=== PATIENT | male | born 1985 | race Caucasian/White ===

== ENCOUNTER 2019-04-18 14:20 | Observation (INO) | payer OTHER ==
[~2019-04-18 14:20] MED LIST: Ketorolac Tromethamine 30 MG/ML VIAL ONE; Lidocaine 1% PF 5 ML VIAL ONE; Ondansetron PF 4 MG/2 ML Vial ONE; PROPOFOL 200 MG/20 ML VIAL ONE
[2019-04-18] MEDS ORDERED: Sodium Chloride 0.9% 10 ML ONE ×2 (16:19→16:48)
[2019-04-18] MEDS ORDERED: Sodium Chloride 0.9% 20 ML ONE (16:36)
[2019-04-18] MEDS ORDERED: Bupivacaine PF 0.5% 30 ML VIAL ONE (16:48)
[2019-04-18] MEDS ORDERED: Bacitracin Zinc Ointment 30 gm TUBE ONE (16:48)
[2019-04-18] MEDS ORDERED: Midazolam HCl 2 mg/2 ml Vial ONE (16:52)
[2019-04-18] MEDS ORDERED: HYDROmorphone 0.5 MG/0.5 ML SYRINGE ONE (16:52)
[2019-04-18] MEDS ORDERED: Gentamicin 80 MG/2 ML VIAL ONE (16:53)
[2019-04-18] MEDS ORDERED: Sodium Chloride 0.9% 0 ML ONE (16:53)
--- NOTE | 2019-04-18 17:04 | RAD ---
EXAM: 3 views of the right hand COMPARISON: None HISTORY: Hand pain FINDINGS: 3 views of the hand shows no evidence of acute fracture or dislocation. No degenerative yariel nges are seen. Ring and small finger soft tissue swelling is present. IMPRESSION: Soft tissue swelling of the ring and small fingers without obvious osseous abnormality. E xamination is limited as the patient's fingers are held in flexion.
[2019-04-18] MEDS ORDERED: Sodium Chloride 0.9% 30 ML ONE (17:50)
[2019-04-18] MEDS ORDERED: HYDROmorphone 2 MG/ML VIAL SLOW IVP PRN (18:19)
[2019-04-18] MEDS ORDERED: Promethazine HCl 25 MG/ML VIAL SLOW IVP PRN (18:19)
[2019-04-18] MEDS ORDERED: PACU-Morphine 4MG/ML VIAL SLOW IVP PRN (18:19)
[2019-04-18] MEDS ORDERED: Promethazine HCl 25 MG/ML VIAL IM PRN (18:19)
[2019-04-18] MEDS ORDERED: Ondansetron HCl/PF 4 MG/2 ML Vial IVP PRN (18:19)
[2019-04-18] MEDS ORDERED: Morphine 4 MG/ML VIAL SLOW IVP PRN (19:24)
[2019-04-18] MEDS ORDERED: Fentanyl 100 MCG/2 ML VIAL SLOW IVP PRN (19:24)
[2019-04-18] MEDS ORDERED: Acetaminophen 325 MG TAB PO PRN (19:24)
[2019-04-18] MEDS ORDERED: traMADol HCl 50 MG TAB PO PRN (19:24)
[2019-04-18] MEDS ORDERED: Meperidine HCl/PF 25 MG/ML VIAL IM PRN (19:27)
[2019-04-18] MEDS ORDERED: Communication Order-Pharmacy FS SCH (19:30)
[2019-04-18] MEDS ORDERED: TETANUS AND DIPHTHERIA TOX/PF 0.5 ML DISP.SYRIN IM SCH (21:00)
[2019-04-18 22:03] VITALS: BMI 32.3
[2019-04-18] MEDS: Sodium Chloride 0.9% 1,000 ML IV SCH (22:29)
[2019-04-18] MEDS: Aspirin 81 mg Enteric Coated Tablet PO SCH (22:31)
[2019-04-19] MEDS: Ketorolac Tromethamine 30 MG/ML VIAL IVP SCH ×3 (00:03→11:44)
[2019-04-19] MEDS: Vancomycin 1 GM in Premix Bag 1 BAG IVPB SCH ×2 (00:03→08:03)
[2019-04-19] MEDS: HYDROcodone/Acetaminophen 5/325 mg Tablet PO PRN ×4 (00:07→13:28)
[2019-04-19] MEDS: Sodium Chloride 0.9% 1,000 ML IV SCH (05:38)
[2019-04-19] MEDS ORDERED: metFORMIN 500 MG TAB PO SCH (08:00)
[2019-04-19] MEDS: Aspirin 81 mg Enteric Coated Tablet PO SCH (08:03)
--- NOTE | 2019-04-19 10:35 | OP ---
DATE OF PROCEDURE: 04/18/2019 PREOPERATIVE DIAGNOSIS: Right ring finger, middle finger, small finger, index finger open wound secondary to at work injury. HISTORY: The patient caught his hand on a large culvert while it was rolling, grabbed it with palmar lacerations near the distal interphalangeal joint of all three digits. POSTOPERATIVE DIAGNOSES: 1. Right small finger 3 cm wound without neurovascular compromise. 2. Right index finger 3 cm wound without neurovascular compromise. 3. Right middle finger 5 cm wound with digital nerve exposed, but no nerve laceration. 4. Right ring finger 5 cm wound with digital nerve exposed with neurovascular injuries. PROCEDURES PERFORMED: 1. Right small finger. a. Wound debridement depth intermediate, 80849. b. Closure of wound, 3 cm, 46655. 2. Right index finger. a. Wound debridement, 71860. b. Wound closure 3 cm, 85740. 3. Right middle finger. a. Wound debridement, 78022, depth. b. Digital nerve neuroplasty under magnification. c. Closure of wound, 5 cm, 84113. 4. Right ring finger. a. Wound debridement, intermediate depth 52073. b. Digital nerve neuroplasty. c. Closure of wound, 5 cm. SPECIMEN REMOVED: None. TOURNIQUET TIME: 12 minutes at 250 mmHg pressure. ESTIMATED BLOOD LOSS: 10 mL. INJECTABLE: Yes, 20 mL of 0.5% Marcaine given proximal to the A1 anthony region and all four digits divided equally prior to incision. DESCRIPTION OF PROCEDURE: After successful general endotracheal anesthesia, keeping in mind that patient had intact FDP, FDS and two-point discrimination in the radial and ulnar aspect of all digits, we elevated all flaps, after exsanguination of the limb, and prepped and draped. The time-out done appropriately. This was done at the small finger and the index finger by only a 5 mm extension and then at the middle and ring finger by a 1.5 cm extension proximally. We first then after we lifted the flaps on the index and the small finger, noticed a mild amount of contamination, but there was an area of 3 mm rim of complete epidermal loss on each finger that had the most contamination. We debrided this using classic technique with tenotomy scissors, Adson's, curette, and Pulsavac in an excisional fashion. Depth was down to the flexor tendon sheath with the neurovascular bundle, but not including bone. There was no radiographic evidence or clinical evidence of fracture in any of the digits with the x-rays done here at this hospital prior to surgery. The patient then had the debridement completed with excision technique and found to have only minimal contamination here. Because there was a transverse laceration and a jagged oblique laceration of both the middle finger and the ring finger, we extended these wounds 1.5 cm proximal, 5 mm distal to expose the neurovascular bundle, which was intact clinically under magnification at both sites and thus the ring finger and the middle finger underwent digital nerve neuroplasties under loupe magnification x2 as well as the standard debridement techniques described above. Once we had finished irrigating with the 3 L Pulsavac, divided equally amongst each digit wound, we then used another 1000 on the back table with irrigation x2, deflated tourniquet, obtained hemostasis, and then began closure. All wounds were closed primarily with either 4-0 or 5-0 nylon, and there was no evidence of anesthetic or operative complication. Splint was applied as classic dorsal block, and the patient left the operating room with pink digits. No evidence of anesthetic or operative complication. Job ID: [id number]
[2019-04-19 11:35] VITALS: BP 125/88; TEMP 97.8
--- NOTE | 2019-04-20 15:11 | DIS ---
DATE OF ADMISSION: 04/18/2019 DATE OF DISCHARGE: 04/19/2019 ADMISSION DIAGNOSES: 1. Right small finger 3 cm wound. 2. Right index finger 3 cm wound. 3. Right middle finger 5 cm wound. 4. Right ring finger 5 cm wound. DISCHARGE DIAGNOSES: 1. Right small finger 3 cm wound without evidence of neurovascular compromise. 2. Right index finger 3 cm wound without evidence of neurovascular compromise. 3. Right middle finger 5 cm wound with evidence of digital nerve exposure, but no nerve laceration. 4. Right ring finger 5 cm wound with evidence of digital nerve exposure, but no nerve laceration. HOSPITAL COURSE: The patient was admitted because of the open wounds with possible contamination. He went to the operating room that night, found to have minimum contaminates, wounds were debrided, this included exploration of all wounds, his small finger and index finger wound were not deep, so he underwent wound debridement and closure while the middle finger and ring finger were deep and required digital nerve neuroplasty, but they were not lacerated. All wounds were closed. He remained in the hospital with a bulky dressing, Reagan type splint to protect the bundle, and was given IV antibiotics for 24 hours before being discharged. He has no fever or chills. PLAN: The patient will not work for one week. Wear the dress for 1 week. Given oral Bactrim DS prophylaxis and [place] for pain. Diet is regular. Follow up with us again in 5 to 7 days. Job ID: [id number]
--- NOTE | 2019-05-02 06:10 | PQF ---
[facility] POST DISCHARGE CLINICAL DOCUMENTATION IMPROVEMENT CLARIFICATION FORM l Todays Date: 04/29/19 l Patients Name MALATHI DURAND l l Admit Date 04/18/19 l Disch Date 04/19/19 Teletype Adjuster Name Italo Eason Email: [email or web address] Cell: [phone] To be completed by Teletype Adjuster: Present Clinical Indicators - Signs / Symptoms Results and Location in Medical Record [ ] Documentation of: [ ] [ ] Documentation of: [ ] [ ] Documentation of: [ ] [ ] Documentation of: [ ] [ ] Risks [ ] [ ] [ ] Treatment [ ] Laceration of R index finger Laceration of R middle finger Laceration of R ring finger Laceration of R small finger Query for the following: Area (sq cm) of debridement R index finger Area (sq cm) and depth of debridement R middle finger Area (sq cm) and depth of debridement R ring finger Area (sq cm) of debridement R small finger [ ] [ ] To be completed by Physician: MACI ESPINO The documentation in this patients record requires clarification to ensure coding compliance and accuracy. Check the appropriate box and include in your discharge summary. [ ] [ ] [ ] [ ] Please check this box if this does not apply to this patient [ ] Unable to determine [ ] Other diagnosis: Review the following information and exercise your independent professional judgment in responding to the clarification. Based upon the clinical findings, risk factors, and treatment, please clarify if you are treating one of the above probable or suspected diagnoses. Physician Signature: Date Time MTDD
== END 2019-04-19 13:30 | disposition home or self-care (01) ==
LOC: ERS 14:20 → SDC 14:21 → SURG A 19:27 → UNDOADMOB 19:27
PROVIDERS: ADMIT Orthopaedic Surgery Hand Surgery; ATTEND Orthopaedic Surgery Hand Surgery
PROC: 01Q60ZZ Repair Radial Nerve, Open Approach (ICD-10-PCS; principal; 2019-04-18)
PROC: 01Q40ZZ Repair Ulnar Nerve, Open Approach (ICD-10-PCS; 2019-04-18)
PROC: 01Q60ZZ Repair Radial Nerve, Open Approach (ICD-10-PCS; 2019-04-18)
PROC: 01Q40ZZ Repair Ulnar Nerve, Open Approach (ICD-10-PCS; 2019-04-18)
PROC: 0JQJ0ZZ Repair Right Hand Subcutaneous Tissue and Fascia, Open Approach (ICD-10-PCS; 2019-04-18)
DX: S61.210A Laceration without foreign body of right index finger without damage to nail, initial encounter (principal); S61.212A Laceration without foreign body of right middle finger without damage to nail, initial encounter; S61.214A Laceration without foreign body of right ring finger without damage to nail, initial encounter; S61.216A Laceration without foreign body of right little finger without damage to nail, initial encounter; E11.9 Type 2 diabetes mellitus without complications; I10 Essential (primary) hypertension; Z79.84 Long term (current) use of oral hypoglycemic drugs; Z79.899 Other long term (current) drug therapy; W23.0XXA Caught, crushed, jammed, or pinched between moving objects, initial encounter; Y99.0 Civilian activity done for income or pay
CPT/HCPCS: 96365; 96366; 96375; 96376; G0378; J0690; J1170; J1580; J1885; J2001; J2250; J2405; J2704; J3370; J3490; S0020

== ENCOUNTER 2021-08-15 11:06 | Inpatient (IN) | payer OTHER ==
[2021-08-15] MEDS ORDERED: CEFAZOLIN 2 GM VIAL ONE ×2 (11:17→16:33)
[2021-08-15] MEDS ORDERED: Boostrix 0.5 ML (Tdap) VIAL ONE (11:17)
[2021-08-15] MEDS ORDERED: Fentanyl 100 MCG/2 ML VIAL ONE ×4 (11:18→14:56)
[2021-08-15] MEDS ORDERED: Ketamine 50 MG/ML (10ML VIAL) ONE ×2 (11:19→16:35)
[2021-08-15] MEDS ORDERED: Iopamidol-370 76% 500 ML 1 ML ONE (11:35)
[2021-08-15 12:38] LABS: #Eosinphils 0.1 thou/uL (0.0-0.7); #Monocytes 0.5 thou/uL (0.11-0.59); #Neutrophils 8.8 thou/uL (1.40-6.50); %Basophils 0.1 % (0.0-1.0); %Eosinophils 1.1 % (0.0-10.0); %Monocytes 4.2 % (0.0-10.0); %Neutrophils 70.6 % (42.0-75.0); Hemoglobin 14.6 g/dL (14.0-18.0); Mean Corpuscular HGB CONC 33.8 g/dL (32.0-36.0); Mean Corpuscular Hemoglobin 31.6 pg (27.0-31.0); Mean Corpuscular Volume 93.6 fL (78.0-98.0); Mean Platelet Volume 8.9 fL (7.4-10.4); Platelet Count 246 thou/uL (130-400); RBC Distribution Width 11.1 % (11.5-14.5); Red Blood Cell (RBC) Count 4.61 mill/uL (4.70-6.10); White Blood Cell (WBC) Count 12.4 thou/uL (4.8-10.8)
[2021-08-15 12:49] LABS: PTT 24.5 sec (22.9-36.1); Prothrombin Time 13.3 sec (12.0-14.7)
[2021-08-15 13:02] LABS: ALT (SGPT) 591 U/L (8-55); AST (SGOT) 1139 U/L (5-34); Albumin 4.3 g/dL (3.5-5.0); Alkaline Phosphatase 44 U/L (40-110); Anion Gap 20 mmol/L (10-20); BUN (Urea Nitrogen) 16 mg/dL (8.9-20.6); Bilirubin, Total 0.8 mg/dL (0.2-1.2); Calc. Creatinine Clearance 0 mL/min (70-130); Calcium 9.4 mg/dL (7.8-10.44); Carbon Dioxide 20 mmol/L (22-29); Chloride 100 mmol/L (98-107); Globulin 2.8 g/dL (2.4-3.5); Glucose 276 mg/dL (70-105); Lipase 72 U/L (8-78); Potassium 4.5 mmol/L (3.5-5.1); Protein, Total 7.1 g/dL (6.0-8.3); Sodium 135 mmol/L (136-145)
[2021-08-15] MEDS ORDERED: Dextrose 50% Abboject 50 ML SYRINGE SLOW IVP PRN (13:04)
[2021-08-15] MEDS ORDERED: Dextrose 5% in Water 1,000 ML IV PRN (13:04)
[2021-08-15] MEDS ORDERED: Ondansetron PF 4 MG/2 ML Vial IVP PRN ×2 (13:04→13:39)
[2021-08-15] MEDS ORDERED: hydrALAZINE 20 MG/ML VIAL SLOW IVP PRN (13:04)
[2021-08-15] MEDS ORDERED: Promethazine HCl 25 MG/ML VIAL IM PRN ×2 (13:04→13:39)
[2021-08-15] MEDS ORDERED: Morphine 2 MG/ML VIAL SLOW IVP PRN (13:04)
[2021-08-15] MEDS ORDERED: HYDROmorphone 0.5 MG/0.5 ML SYRINGE ONE ×2 (13:08→16:17)
[2021-08-15] MEDS ORDERED: Sodium Chloride 0.9% 1,000 ML IV SCH ×2 (13:15→19:15)
[2021-08-15] MEDS ORDERED: Ketorolac Tromethamine 30 MG/ML VIAL ONE (13:34)
[2021-08-15] MEDS ORDERED: diphenhydrAMINE 50 MG/ML VIAL IVP PRN (13:39)
[2021-08-15] MEDS ORDERED: Naloxone HCl 0.4 mg/ml Vial IV PRN (13:39)
[2021-08-15] MEDS ORDERED: diphenhydrAMINE 50 MG/ML VIAL IM PRN (13:39)
[2021-08-15] MEDS ORDERED: HYDROmorphone 10 mg/100 ml CADD IVPB PRN (13:39)
[2021-08-15] MEDS ORDERED: Zolpidem Tartrate 5 MG TAB PO PRN (13:39)
[2021-08-15] MEDS ORDERED: diphenhydrAMINE 25 MG CAP PO PRN (13:39)
[2021-08-15] MEDS ORDERED: PCA Communication Order-Pharmacy FS SCH (13:45)
[2021-08-15] MEDS ORDERED: ceFAZolin 2 GM/Dextrose 50 ML 2 GM in Premix Bag 1 BAG IVPB SCH (15:00)
[2021-08-15 15:27] LABS: SARS-CoV-2 NAA Rapid Test Not Detected (NotDetected)
[2021-08-15 16:12] LABS: Lactic Acid 4.3 mmol/L (0.5-2.2)
[2021-08-15] MEDS ORDERED: Midazolam HCl 2 mg/2 ml Vial ONE (16:17)
[2021-08-15] MEDS ORDERED: fentaNYL Citrate/PF 100 MCG/2 ML SYRINGE ONE (16:17)
[2021-08-15] MEDS ORDERED: Famotidine/PF 20 mg/2ml Vial ONE (16:18)
[2021-08-15] MEDS ORDERED: Sodium Chloride 0.9% 100 ML ONE (16:33)
[2021-08-15] MEDS ORDERED: Dexamethasone 20 MG/5 ML VIAL ONE (16:51)
[2021-08-15] MEDS ORDERED: Ondansetron PF 4 MG/2 ML Vial ONE (16:51)
[2021-08-15] MEDS ORDERED: PROPOFOL 200 MG/20 ML VIAL ONE (16:51)
[2021-08-15] MEDS ORDERED: PHENYLEPHRINE-NS 100 MCG/ML 10 ML SYRINGE ONE ×2 (16:51→17:30)
[2021-08-15] MEDS ORDERED: Lidocaine 1% PF 5 ML VIAL ONE (16:51)
[2021-08-15] MEDS ORDERED: Acetaminophen 500 MG TAB PO SCH (18:00)
[2021-08-15] MEDS ORDERED: traMADol HCl 50 MG TAB PO SCH (18:00)
[2021-08-15] MEDS ORDERED: Albumin 5% 500 ML ONE (18:25)
[2021-08-15] MEDS ORDERED: Acetaminophen 325 MG TAB PO SCH (19:15)
[2021-08-15 19:42] LABS: #Lymphocytes 0.5 thou/uL (1.20-3.40); #Monocytes 0.6 thou/uL (0.11-0.59); #Neutrophils 8.9 thou/uL (1.40-6.50); %Basophils 0.2 % (0.0-1.0); %Eosinophils 0.3 % (0.0-10.0); %Lymphocytes 5.4 % (21.0-51.0); %Monocytes 5.5 % (0.0-10.0); %Neutrophils 88.6 % (42.0-75.0); Hemoglobin 12.1 g/dL (14.0-18.0); Mean Corpuscular HGB CONC 34.3 g/dL (32.0-36.0); Mean Corpuscular Hemoglobin 31.9 pg (27.0-31.0); Mean Platelet Volume 8.4 fL (7.4-10.4); Platelet Count 194 thou/uL (130-400); RBC Distribution Width 10.8 % (11.5-14.5); Red Blood Cell (RBC) Count 3.78 mill/uL (4.70-6.10); White Blood Cell (WBC) Count 10.1 thou/uL (4.8-10.8)
[2021-08-15] MEDS ORDERED: Lidocaine 1% (PF) 30 ML VIAL ONE (20:44)
[2021-08-15] MEDS: Gabapentin 300 MG CAP PO SCH ×2 (22:06→23:12)
[2021-08-15] MEDS: Senokot S 8.6-50 MG TAB PO SCH (22:08)
[2021-08-15] MEDS: CEFAZOLIN 2 GM in Sodium Chloride 0.9% 100 ML IVPB SCH (22:08)
[2021-08-15] MEDS: Famotidine/PF 20 mg/2ml Vial SLOW IVP SCH (22:09)
[2021-08-15] MEDS ORDERED: Insulin Glargine 30 UNITS/0.3 ML VIAL SC SCH (22:32)
[2021-08-15] MEDS: Sodium Chloride 0.9% 1,000 ML IV SCH (23:05)
[2021-08-15] MEDS: Acetaminophen 325 MG TAB PO SCH (23:09)
[2021-08-16 00:23] VITALS: BMI 33.7
[2021-08-16 01:33] LABS: #Lymphocytes 0.5 thou/uL (1.20-3.40); #Monocytes 0.4 thou/uL (0.11-0.59); #Neutrophils 5.7 thou/uL (1.40-6.50); %Eosinophils 0.4 % (0.0-10.0); %Lymphocytes 6.9 % (21.0-51.0); %Monocytes 6.5 % (0.0-10.0); %Neutrophils 86.3 % (42.0-75.0); Hemoglobin 10.9 g/dL (14.0-18.0); Mean Corpuscular HGB CONC 35.1 g/dL (32.0-36.0); Mean Corpuscular Hemoglobin 32.8 pg (27.0-31.0); Mean Corpuscular Volume 93.4 fL (78.0-98.0); Platelet Count 151 thou/uL (130-400); RBC Distribution Width 10.8 % (11.5-14.5); Red Blood Cell (RBC) Count 3.32 mill/uL (4.70-6.10); White Blood Cell (WBC) Count 6.7 thou/uL (4.8-10.8)
[2021-08-16 03:44] LABS: #Lymphocytes 0.4 thou/uL (1.20-3.40); #Monocytes 0.6 thou/uL (0.11-0.59); %Eosinophils 0.3 % (0.0-10.0); %Monocytes 7.8 % (0.0-10.0); Hemoglobin 10.8 g/dL (14.0-18.0); Mean Corpuscular HGB CONC 34.7 g/dL (32.0-36.0); Mean Corpuscular Hemoglobin 32.6 pg (27.0-31.0); Mean Corpuscular Volume 93.7 fL (78.0-98.0); Platelet Count 138 thou/uL (130-400); Red Blood Cell (RBC) Count 3.33 mill/uL (4.70-6.10)
[2021-08-16 04:08] LABS: Anion Gap 16 mmol/L (10-20); BUN (Urea Nitrogen) 15 mg/dL (8.9-20.6); Calc. Creatinine Clearance 137 mL/min (70-130); Calcium 8.5 mg/dL (7.8-10.44); Carbon Dioxide 22 mmol/L (22-29); Chloride 105 mmol/L (98-107); Glucose 264 mg/dL (70-105); Magnesium 1.3 mg/dL (1.6-2.6); Potassium 4.8 mmol/L (3.5-5.1); Sodium 138 mmol/L (136-145)
[2021-08-16 04:10] LABS: ALT (SGPT) 299 U/L (8-55); AST (SGOT) 596 U/L (5-34); Albumin 3.8 g/dL (3.5-5.0); Alkaline Phosphatase 25 U/L (40-110); Bilirubin, Direct 0.2 mg/dL (0.1-0.3); Bilirubin, Total 0.6 mg/dL (0.2-1.2); Phosphorus 3.8 mg/dL (2.3-4.7); Protein, Total 5.8 g/dL (6.0-8.3)
[2021-08-16 04:21] LABS: CK (CPK) 6847 U/L (30-200)
[2021-08-16 04:29] LABS: Lactic Acid 1.9 mmol/L (0.5-2.2)
[2021-08-16] MEDS: CEFAZOLIN 2 GM in Sodium Chloride 0.9% 100 ML IVPB SCH (04:56)
[2021-08-16] MEDS: Sodium Chloride 0.9% 1,000 ML IV SCH ×4 (04:57→21:02)
[2021-08-16] MEDS: Acetaminophen 325 MG TAB PO SCH ×4 (07:25→23:28)
[2021-08-16] MEDS: HumaLOG 300 UNITS/3 ML VIAL SC PRN ×5 (07:29→20:50)
[2021-08-16] MEDS: Polyethylene Glycol 3350 17 GM Packet PO SCH (08:50)
[2021-08-16] MEDS: Senokot S 8.6-50 MG TAB PO SCH ×2 (08:51→20:49)
[2021-08-16] MEDS: Gabapentin 300 MG CAP PO SCH ×3 (08:52→20:49)
[2021-08-16] MEDS: Famotidine/PF 20 mg/2ml Vial SLOW IVP SCH ×2 (08:54→20:50)
[2021-08-16] MEDS ORDERED: Insulin Glargine 30 UNITS/0.3 ML VIAL SC SCH (09:00)
[2021-08-16] MEDS ORDERED: Magnesium Sulfate In Water 4 GM in Premix Bag 1 BAG IVPB SCH (11:15)
[2021-08-16] MEDS: Ketorolac Tromethamine 30 MG/ML VIAL IVP SCH ×3 (12:27→23:27)
[2021-08-17] MEDS: Sodium Chloride 0.9% 1,000 ML IV SCH ×2 (04:45→18:11)
[2021-08-17] MEDS: Acetaminophen 325 MG TAB PO SCH ×4 (05:18→23:51)
[2021-08-17] MEDS: Ketorolac Tromethamine 30 MG/ML VIAL IVP SCH ×2 (05:18→13:10)
[2021-08-17] MEDS: HumaLOG 300 UNITS/3 ML VIAL SC PRN ×3 (06:31→20:21)
[2021-08-17 06:58] LABS: #Eosinphils 0.1 thou/uL (0.0-0.7); #Monocytes 0.3 thou/uL (0.11-0.59); #Neutrophils 3.5 thou/uL (1.40-6.50); %Basophils 0.1 % (0.0-1.0); %Eosinophils 1.9 % (0.0-10.0); %Monocytes 6.4 % (0.0-10.0); %Neutrophils 71.6 % (42.0-75.0); Hemoglobin 8.8 g/dL (14.0-18.0); Mean Corpuscular HGB CONC 33.8 g/dL (32.0-36.0); Mean Corpuscular Hemoglobin 32.1 pg (27.0-31.0); Mean Corpuscular Volume 95.1 fL (78.0-98.0); Mean Platelet Volume 8.5 fL (7.4-10.4); Platelet Count 125 thou/uL (130-400); Red Blood Cell (RBC) Count 2.75 mill/uL (4.70-6.10); White Blood Cell (WBC) Count 4.9 thou/uL (4.8-10.8)
[2021-08-17 07:38] LABS: CK (CPK) 5943 U/L (30-200)
[2021-08-17 07:42] LABS: Anion Gap 14 mmol/L (10-20); BUN (Urea Nitrogen) 13 mg/dL (8.9-20.6); Calc. Creatinine Clearance 169 mL/min (70-130); Calcium 8.1 mg/dL (7.8-10.44); Carbon Dioxide 26 mmol/L (22-29); Chloride 101 mmol/L (98-107); Glucose 217 mg/dL (70-105); Magnesium 1.9 mg/dL (1.6-2.6); Phosphorus 1.9 mg/dL (2.3-4.7); Potassium 3.7 mmol/L (3.5-5.1); Sodium 137 mmol/L (136-145)
[2021-08-17 08:14] LABS: ALT (SGPT) 152 U/L (8-55); AST (SGOT) 151 U/L (5-34); Albumin 3.6 g/dL (3.5-5.0); Alkaline Phosphatase 29 U/L (40-110); Bilirubin, Direct 0.2 mg/dL (0.1-0.3); Bilirubin, Total 0.6 mg/dL (0.2-1.2); Protein, Total 5.8 g/dL (6.0-8.3)
[2021-08-17] MEDS ORDERED: Potassium Phosphate 30 MMOL in Sodium Chloride 0.9% 250 ML 250 ML IVPB SCH (09:00)
[2021-08-17] MEDS: Famotidine/PF 20 mg/2ml Vial SLOW IVP SCH ×2 (09:09→20:19)
[2021-08-17] MEDS: Polyethylene Glycol 3350 17 GM Packet PO SCH (09:09)
[2021-08-17] MEDS: Gabapentin 300 MG CAP PO SCH ×3 (09:10→20:21)
[2021-08-17] MEDS: Insulin Glargine 30 UNITS/0.3 ML VIAL SC SCH (09:10)
[2021-08-17] MEDS: Senokot S 8.6-50 MG TAB PO SCH ×2 (09:11→20:20)
[2021-08-17] MEDS: Escitalopram Oxalate 10 mg Tablet PO SCH ×2 (14:11→16:30)
[2021-08-17] MEDS: Ibuprofen 200 MG TAB PO SCH ×2 (18:09→23:52)
[2021-08-17] MEDS: traMADol HCl 50 MG TAB PO SCH ×2 (18:11→23:52)
[2021-08-17] MEDS: Rosuvastatin 20 MG TAB PO SCH (20:19)
[2021-08-17] MEDS: Fenofibrate Nanocrystallized 145 MG TAB PO SCH (20:19)
[2021-08-17] MEDS: Amlodipine 5 MG TAB PO SCH (20:20)
[2021-08-17] MEDS: Lisinopril 5 MG TAB PO SCH (20:20)
[2021-08-17] MEDS: Transdermal Patch Removal TOP SCH (20:21)
[2021-08-17] MEDS: Cyclobenzaprine 10 MG TAB PO PRN (20:27)
[2021-08-17] MEDS ORDERED: Amlodipine 5 MG TAB PO SCH (21:00)
[2021-08-17] MEDS ORDERED: Non-Formulary Item 1 EACH (Amlodipine Besylate/Benazepril [Amlodipine Besylate/Benazepril PO SCH (21:00)
[2021-08-17] MEDS ORDERED: Lisinopril 5 MG TAB PO SCH (21:00)
[2021-08-18] MEDS: Acetaminophen 325 MG TAB PO SCH ×3 (05:29→18:16)
[2021-08-18] MEDS: HumaLOG 300 UNITS/3 ML VIAL SC PRN ×3 (05:29→20:38)
[2021-08-18] MEDS: Ibuprofen 200 MG TAB PO SCH ×3 (05:29→18:17)
[2021-08-18] MEDS: traMADol HCl 50 MG TAB PO SCH ×2 (05:29→12:18)
[2021-08-18] MEDS: Escitalopram Oxalate 10 mg Tablet PO SCH ×3 (06:05→16:37)
[2021-08-18 06:06] LABS: #Eosinphils 0.2 thou/uL (0.0-0.7); #Monocytes 0.4 thou/uL (0.11-0.59); #Neutrophils 2.9 thou/uL (1.40-6.50); %Basophils 0.4 % (0.0-1.0); %Eosinophils 4.1 % (0.0-10.0); %Lymphocytes 22.1 % (21.0-51.0); %Neutrophils 64.5 % (42.0-75.0); Hemoglobin 8.8 g/dL (14.0-18.0); Mean Corpuscular HGB CONC 33.5 g/dL (32.0-36.0); Mean Corpuscular Hemoglobin 31.7 pg (27.0-31.0); Mean Corpuscular Volume 94.5 fL (78.0-98.0); Platelet Count 146 thou/uL (130-400); Red Blood Cell (RBC) Count 2.77 mill/uL (4.70-6.10); White Blood Cell (WBC) Count 4.4 thou/uL (4.8-10.8)
[2021-08-18] MEDS: Lidocaine 5% Patch TD SCH (09:57)
[2021-08-18] MEDS: Insulin Glargine 30 UNITS/0.3 ML VIAL SC SCH (09:58)
[2021-08-18] MEDS: Gabapentin 300 MG CAP PO SCH ×3 (09:58→20:37)
[2021-08-18] MEDS: Famotidine/PF 20 mg/2ml Vial SLOW IVP SCH ×2 (09:58→20:39)
[2021-08-18] MEDS: Senokot S 8.6-50 MG TAB PO SCH ×2 (09:59→20:39)
[2021-08-18] MEDS: Polyethylene Glycol 3350 17 GM Packet PO SCH (09:59)
[2021-08-18] MEDS: oxyCODONE 5 MG TAB PO SCH ×2 (12:30→18:17)
[2021-08-18] MEDS: Rosuvastatin 20 MG TAB PO SCH (20:37)
[2021-08-18] MEDS: Lisinopril 5 MG TAB PO SCH (20:38)
[2021-08-18] MEDS: Amlodipine 5 MG TAB PO SCH (20:38)
[2021-08-18] MEDS: Fenofibrate Nanocrystallized 145 MG TAB PO SCH (20:39)
[2021-08-18] MEDS: Transdermal Patch Removal TOP SCH (20:39)
[2021-08-19] MEDS: oxyCODONE 5 MG TAB PO SCH ×3 (00:36→11:41)
[2021-08-19] MEDS: Ibuprofen 200 MG TAB PO SCH ×5 (00:36→23:08)
[2021-08-19] MEDS: Acetaminophen 325 MG TAB PO SCH ×3 (00:36→11:42)
[2021-08-19] MEDS: Escitalopram Oxalate 10 mg Tablet PO SCH ×3 (05:47→17:47)
[2021-08-19] MEDS: HumaLOG 300 UNITS/3 ML VIAL SC PRN ×4 (05:48→20:46)
[2021-08-19] MEDS: Insulin Glargine 30 UNITS/0.3 ML VIAL SC SCH (08:54)
[2021-08-19] MEDS: Gabapentin 300 MG CAP PO SCH ×3 (08:54→20:44)
[2021-08-19] MEDS: Senokot S 8.6-50 MG TAB PO SCH ×2 (08:55→20:45)
[2021-08-19] MEDS: Famotidine/PF 20 mg/2ml Vial SLOW IVP SCH ×2 (08:55→20:46)
[2021-08-19] MEDS: Polyethylene Glycol 3350 17 GM Packet PO SCH (08:55)
[2021-08-19] MEDS: Lidocaine 5% Patch TD SCH (08:55)
[2021-08-19] MEDS ORDERED: traMADol HCl 50 MG TAB PO PRN (17:44)
[2021-08-19] MEDS: Acetaminophen/Codeine 30-300mg Tablet PO SCH ×2 (17:51→23:08)
[2021-08-19] MEDS: Cyclobenzaprine 10 MG TAB PO PRN (20:44)
[2021-08-19] MEDS: Amlodipine 5 MG TAB PO SCH (20:45)
[2021-08-19] MEDS: Rosuvastatin 20 MG TAB PO SCH (20:45)
[2021-08-19] MEDS: Lisinopril 5 MG TAB PO SCH (20:46)
[2021-08-19] MEDS: Transdermal Patch Removal TOP SCH (20:46)
[2021-08-19] MEDS ORDERED: Fenofibrate Nanocrystallized 145 MG TAB PO SCH (21:00)
[2021-08-19] MEDS ORDERED: Morphine 2 MG/ML VIAL SLOW IVP SCH (21:45)
[2021-08-20 05:36] LABS: #Eosinphils 0.2 thou/uL (0.0-0.7); #Lymphocytes 1.4 thou/uL (1.20-3.40); #Monocytes 0.7 thou/uL (0.11-0.59); #Neutrophils 3.2 thou/uL (1.40-6.50); %Basophils 0.4 % (0.0-1.0); %Eosinophils 3.7 % (0.0-10.0); %Lymphocytes 25.1 % (21.0-51.0); %Monocytes 12.1 % (0.0-10.0); %Neutrophils 58.8 % (42.0-75.0); Mean Corpuscular HGB CONC 34.2 g/dL (32.0-36.0); Mean Corpuscular Hemoglobin 32.2 pg (27.0-31.0); Mean Corpuscular Volume 94.2 fL (78.0-98.0); Mean Platelet Volume 7.6 fL (7.4-10.4); Platelet Count 187 thou/uL (130-400); RBC Distribution Width 11.3 % (11.5-14.5); Red Blood Cell (RBC) Count 3.09 mill/uL (4.70-6.10); White Blood Cell (WBC) Count 5.5 thou/uL (4.8-10.8)
[2021-08-20] MEDS: Ibuprofen 200 MG TAB PO SCH ×2 (05:58→11:57)
[2021-08-20] MEDS: HumaLOG 300 UNITS/3 ML VIAL SC PRN ×2 (05:58→12:06)
[2021-08-20] MEDS: Acetaminophen/Codeine 30-300mg Tablet PO SCH ×3 (05:58→15:14)
[2021-08-20] MEDS: Escitalopram Oxalate 10 mg Tablet PO SCH ×2 (05:58→11:58)
[2021-08-20 06:01] LABS: ALT (SGPT) 64 U/L (8-55); AST (SGOT) 41 U/L (5-34); Albumin 3.5 g/dL (3.5-5.0); Alkaline Phosphatase 39 U/L (40-110); Anion Gap 12 mmol/L (10-20); BUN (Urea Nitrogen) 13 mg/dL (8.9-20.6); Bilirubin, Total 0.7 mg/dL (0.2-1.2); CK (CPK) 1007 U/L (30-200); Calc. Creatinine Clearance 160 mL/min (70-130); Calcium 9.7 mg/dL (7.8-10.44); Carbon Dioxide 28 mmol/L (22-29); Chloride 102 mmol/L (98-107); Globulin 2.5 g/dL (2.4-3.5); Glucose 252 mg/dL (70-105); Magnesium 1.4 mg/dL (1.6-2.6); Phosphorus 4.3 mg/dL (2.3-4.7); Potassium 4.4 mmol/L (3.5-5.1); Sodium 138 mmol/L (136-145)
[2021-08-20] MEDS: Famotidine/PF 20 mg/2ml Vial SLOW IVP SCH (07:43)
[2021-08-20] MEDS: Polyethylene Glycol 3350 17 GM Packet PO SCH (07:44)
[2021-08-20] MEDS: Senokot S 8.6-50 MG TAB PO SCH (07:44)
[2021-08-20] MEDS: Lidocaine 5% Patch TD SCH (08:39)
[2021-08-20] MEDS: Gabapentin 300 MG CAP PO SCH ×2 (08:40→15:14)
[2021-08-20] MEDS: Insulin Glargine 30 UNITS/0.3 ML VIAL SC SCH (08:40)
[2021-08-20] MEDS ORDERED: traMADol HCl 50 MG TAB PO PRN (10:55)
[2021-08-20] MEDS ORDERED: Cyclobenzaprine 10 MG TAB PO PRN (10:56)
[2021-08-20 12:20] VITALS: BP 111/74; TEMP 98.2
== END 2021-08-20 15:35 | disposition home or self-care (01) | DRG 958 ==
LOC: ERS 11:06 → SDC 16:20 → CCU 17:35 → SURG A 08-16 18:53
PROVIDERS: ADMIT Surgery; ATTEND Surgery
PROC: 0KB90ZZ Excision of Right Lower Arm and Wrist Muscle, Open Approach (ICD-10-PCS; principal; 2021-08-15)
PROC: 0KC90ZZ Extirpation of Matter from Right Lower Arm and Wrist Muscle, Open Approach (ICD-10-PCS; 2021-08-15)
PROC: 0W9930Z Drainage of Right Pleural Cavity with Drainage Device, Percutaneous Approach (ICD-10-PCS; 2021-08-15)
PROC: 5A09357 Assistance with Respiratory Ventilation, Less than 24 Consecutive Hours, Continuous Positive Airway Pressure (ICD-10-PCS; 2021-08-19)
DX: S06.6X0A Traumatic subarachnoid hemorrhage without loss of consciousness, initial encounter (principal); S22.43XA Multiple fractures of ribs, bilateral, initial encounter for closed fracture; S27.0XXA Traumatic pneumothorax, initial encounter; S27.339A Laceration of lung, unspecified, initial encounter; T79.7XXA Traumatic subcutaneous emphysema, initial encounter; S36.892A Contusion of other intra-abdominal organs, initial encounter; E87.2 Acidosis; N17.9 Acute kidney failure, unspecified; S27.329A Contusion of lung, unspecified, initial encounter; V29.9XXA Motorcycle rider (driver) (passenger) injured in unspecified traffic accident, initial encounter; S42.101A Fracture of unspecified part of scapula, right shoulder, initial encounter for closed fracture; E11.9 Type 2 diabetes mellitus without complications; E78.5 Hyperlipidemia, unspecified; S41.111A Laceration without foreign body of right upper arm, initial encounter; E86.1 Hypovolemia; E78.00 Pure hypercholesterolemia, unspecified; I10 Essential (primary) hypertension; G47.30 Sleep apnea, unspecified; Z79.84 Long term (current) use of oral hypoglycemic drugs; Z79.899 Other long term (current) drug therapy
CPT/HCPCS: 36415; 36416; 70450; 71045; 71260; 72125; 72170; 74177; 80048; 80053; 80076; 82550; 83605; 83690; 83735; 84100; 85025; 85610; 85730; 86850; 86900; 86901; 90471; 90715; 93005; 96374; 96375; 96376; G0390; J0690; J1100; J1170; J1815; J1885; J2001; J2250; J2405; J2704; J3010; J3475; J3490; J7050; P9045; Q9967; S0028; U0002

== ENCOUNTER 2021-08-27 12:17 | Outpatient (CLI) | payer BC | END 2021-08-27 12:18 | disposition home or self-care (01) | LOC: BICRAD 12:17 | PROVIDERS: ATTEND Surgery | DX: S22.39XA Fracture of one rib, unspecified side, initial encounter for closed fracture (principal); J43.9 Emphysema, unspecified | CPT/HCPCS: 71046 ==